=== PATIENT | female | born 1975 | race Caucasian/White ===

== ENCOUNTER 2016-12-26 06:51 | Day surgery (SDC) | payer BC ==
--- NOTE | ~2016-12-26 | EGD ---
EGD REPORT [facility] [address] [place]. [address] NAME: PATRICIO AMES : [birth year] STATUS : REG [facility] PAT#: [id number] AGE: 41 ADM/REG DATE : 12/26/16 MR#: [id number] REPORT SERV DATE: 12/26/16 DICTATED BY: MOSHE MORSE DATE: 12/26/16 REPORT STATUS : Draft [facility]: [facility] DATE: 12/26/16 Endoscopy Center Patient Name: Patricio Ames Date of : 1975 Attending MD: KAROLYN MORSE MD Procedure Date No Time: 12/26/2016 Procedure: Upper GI endoscopy Indications: Epigastric abdominal pain, Abdominal pain in the right upper quadrant, Nausea Referring MD: AMANDA ARGUETA Medicines: See the Anesthesia note for documentation of the administered medications Complications: No immediate complications. Estimated blood loss: None. Procedure: Pre-Anesthesia Assessment: - ASA Grade Assessment: II - A patient with mild systemic disease. - Prior to the procedure, a History and Physical was performed, and patient medications and allergies were reviewed. The patient's tolerance of previous anesthesia was also reviewed. The risks and benefits of the procedure and the sedation options and risks were discussed with the patient. All questions were answered, and informed consent was obtained. Prior Anticoagulants: The patient has taken no previous anticoagulant or antiplatelet agents. After reviewing the risks and benefits, the patient was deemed in satisfactory condition to undergo the procedure. After obtaining informed consent, the endoscope was passed under direct vision. Throughout the procedure, the patient's blood pressure, pulse, and oxygen saturations were monitored continuously. The GIF H190 [id number] was introduced through the mouth, and advanced to the second part of duodenum. The upper GI endoscopy was accomplished without difficulty. The patient tolerated the procedure well. Findings: The examined duodenum was normal. Biopsies were taken with a cold forceps for histology. The entire examined stomach was normal. Biopsies were taken with a cold forceps for histology. The cardia and gastric fundus were normal on retroflexion. The examined esophagus was normal. Impression: - Normal examined duodenum. Biopsied. EGD REPORT [address] [address] NAME: PATRICIO AMES : 71 STATUS : [place] [facility] [place] [id number] AGE: 41 ADM/REG DATE : 12/26/16 MR#: [id number] REPORT SERV DATE: 12/26/16 DICTATED BY: MOSHE MORSE DATE: 12/26/16 REPORT STATUS : Draft TRANSCRIBED BY: [employer] DATE: 12/26/16 - Normal stomach. Biopsied. - Normal esophagus. Recommendation: - Patient has a contact number available for emergencies. The signs and symptoms of potential delayed complications were discussed with the patient. Return to normal activities tomorrow. Written discharge instructions were provided to the patient. - Regular diet. - Discharge patient to home. - Continue present medications. - Await pathology results. - Return to nurse practitioner in 4 weeks. Procedure Code(s): --- Professional --- 10767, Esophagogastroduodenoscopy, flexible, transoral; with biopsy, single or multiple Diagnosis Code(s): --- Professional --- R10.13, Epigastric pain R10.11, Right upper quadrant pain R11.0, Nausea CPT copyright 2013 [employer]. All rights reserved. The codes documented in this report are preliminary and upon manager location review may be revised to meet current compliance requirements. KAROLYN MORSE MD 12/26/2016 8:19 AM This report has been signed electronically. Number of Addenda: 0 Note Initiated On: 12/26/2016 8:04 AM Scope Withdrawal Time 0 hours 0 minutes 0 seconds [address] [place] [address]
--- NOTE | ~2016-12-26 | EGD ---
EGD REPORT [facility] [address] [place] [address] [address] NAME: PATRICIO AMES : [birth year] STATUS : REG [facility] PAT#: [id number] AGE: 41 ADM/REG DATE : 12/26/16 MR#: [id number] REPORT SERV DATE: 12/26/16 DICTATED BY: MOSHE MORSE DATE: 12/26/16 REPORT STATUS : Draft [facility]ANS[facility]IBED BY: [facility] DATE: 12/26/16 Endoscopy Center Patient Name: Patricio Ames Date of : 1975 Attending MD: KAROLYN MORSE MD Procedure Date No Time: 12/26/2016 Procedure: Colonoscopy Indications: Clinically significant diarrhea of unexplained origin, Hematochezia Referring MD: AMANDA ARGUETA Medicines: See the Anesthesia note for documentation of the administered medications Complications: No immediate complications. Estimated blood loss: Minimal. Procedure: Pre-Anesthesia Assessment: - ASA Grade Assessment: II - A patient with mild systemic disease. - Prior to the procedure, a History and Physical was performed, and patient medications and allergies were reviewed. The patient's tolerance of previous anesthesia was also reviewed. The risks and benefits of the procedure and the sedation options and risks were discussed with the patient. All questions were answered, and informed consent was obtained. Prior Anticoagulants: The patient has taken no previous anticoagulant or antiplatelet agents. After reviewing the risks and benefits, the patient was deemed in satisfactory condition to undergo the procedure. After I obtained informed consent, the scope was passed under direct vision. Throughout the procedure, the patient's blood pressure, pulse, and oxygen saturations were monitored continuously. The PCF [id number] was introduced through the anus and advanced to the terminal ileum. The ileocecal valve, appendiceal orifice, terminal ileum and rectum were photographed. The entire colon was examined. The colonoscopy was performed without difficulty. The patient tolerated the procedure well. The quality of the bowel preparation was adequate. Findings: The perianal and digital rectal examinations were normal. The terminal ileum appeared normal. Normal mucosa was found in the entire colon. Biopsies were taken with a cold forceps for histology. A sessile polyp was found in the mid transverse colon. The polyp was EGD REPORT [address] [address] NAME: PATRICIO AMES : [birth year] STATUS : [place] [facility] [place]#: [id number] AGE: 41 ADM/REG DATE : 12/26/16 MR#: [id number] REPORT SERV DATE: 12/26/16 DICTATED BY: MOSHE MORSE DATE: 12/26/16 REPORT STATUS : Draft TRANSCRIBED BY: [employer] DATE: 12/26/16 small in size. The polyp was removed with a piecemeal technique using a cold biopsy forceps. Resection and retrieval were complete. A sessile polyp was found at the splenic flexure. The polyp was 5 mm in size. The polyp was removed with a cold snare. Resection and retrieval were complete. A sessile polyp was found in the sigmoid colon. The polyp was 8 mm in size. The polyp was removed with a cold snare. Resection and retrieval were complete. Non-bleeding internal hemorrhoids were found during retroflexion and were Grade I (internal hemorrhoids that do not prolapse). No other significant abnormalities were identified in a careful examination of the remainder of the colon. Impression: - The examined portion of the ileum was normal. - Normal mucosa in the entire examined colon. Biopsied. - One small polyp in the mid transverse colon. Resected and retrieved. - One 5 mm polyp at the splenic flexure. Resected and retrieved. - One 8 mm polyp in the sigmoid colon. Resected and retrieved. - Non-bleeding internal hemorrhoids. Recommendation: - Patient has a contact number available for emergencies. The signs and symptoms of potential delayed complications were discussed with the patient. Return to normal activities tomorrow. Written discharge instructions were provided to the patient. - Regular diet. - Discharge patient to home. - Continue present medications. - Await pathology results. - Repeat colonoscopy in 3 years for surveillance. - Return to nurse practitioner in 6 weeks. Procedure Code(s): --- Professional --- 66000, Colonoscopy, flexible, proximal to splenic flexure; with removal of tumor(s), polyp(s), or other lesion(s) by snare technique 59970, 59, Colonoscopy, flexible, proximal to splenic flexure; with biopsy, single or multiple Diagnosis Code(s): --- Professional --- K64.0, First degree hemorrhoids D12.5, Benign neoplasm of sigmoid colon D12.3, Benign neoplasm of transverse colon R19.7, Diarrhea, unspecified EGD REPORT [facility] [address] [facility] [address] NAME: PATRICIO AMES : [birth year] STATUS : [place] [facility] [place]#: [id number] AGE: 41 ADM/REG DATE : 12/26/16 MR#: [id number] REPORT SERV DATE: 12/26/16 DICTATED BY: MOSHE MORSE DATE: 12/26/16 REPORT STATUS : Draft TRANSCRIBED BY: [employer] DATE: 12/26/16 [email or web address] Steele CPT copyright 2013 [employer]. All rights reserved. The codes documented in this report are preliminary and upon customer support advisor review may be revised to meet current compliance requirements. KAROLYN MORSE MD 12/26/2016 8:39 AM This report has been signed electronically. Number of Addenda: 0 Note Initiated On: 12/26/2016 7:58 AM Scope Withdrawal Time 0 hours 11 minutes 56 seconds [address] [place] [address]
[~2016-12-26 06:51] MED LIST: BENTYL10 PO; PROZAC PO; SYNTHROID175 MCG PO
== END 2016-12-26 23:59 | disposition home or self-care (01) ==
LOC: DMU 06:51
PROVIDERS: Internal Medicine Gastroenterology
PROC: 0DB98ZX Excision of Duodenum, Via Natural or Artificial Opening Endoscopic, Diagnostic (ICD-10-PCS; principal; 2016-12-26 08:30)
PROC: 0DB68ZX Excision of Stomach, Via Natural or Artificial Opening Endoscopic, Diagnostic (ICD-10-PCS; 2016-12-26 08:30)
DX: K29.80 Duodenitis without bleeding (principal); D12.3 Benign neoplasm of transverse colon; D12.5 Benign neoplasm of sigmoid colon; H91.90 Unspecified hearing loss, unspecified ear; E78.00 Pure hypercholesterolemia, unspecified; R01.1 Cardiac murmur, unspecified; M46.96 Unspecified inflammatory spondylopathy, lumbar region; R10.13 Epigastric pain; E03.9 Hypothyroidism, unspecified; Z79.899 Other long term (current) drug therapy; F32.9 Major depressive disorder, single episode, unspecified; Z90.49 Acquired absence of other specified parts of digestive tract; Z98.891 History of uterine scar from previous surgery; Z98.890 Other specified postprocedural states; R11.0 Nausea
CPT/HCPCS: 84703; 88305